=== PATIENT | female | born 1945 | race Caucasian/White ===

== ENCOUNTER 2021-05-16 06:31 | Day surgery (SDC) | payer BC, MEDICARE ==
[2021-05-16] MEDS ORDERED: KEFZOL 1 GM** 3 G in Sodium Chloride 0.9% 50 ML 50 ML IV SCH (06:45)
[2021-05-16] MEDS ORDERED: Lactated Ringers 1,000 ML IV SCH (07:00)
[2021-05-16 07:15] LABS: Absolute Neutrophil Ct (ANC) 3.23 (1.4-6.9); Basophil (Absolute #) 0.01 (0-0.4); Eosinophil % 2.6 % (0.00-5.0); Eosinophil (Absolute #) 0.17 (0-0.5); Hematocrit 41.4 % (35-47); Hemoglobin 13.4 gm/dl (12.0-16.0); Lymphocyte (Absolute #) 2.37 (1.0-4.6); Lymphocytes % 36.9 % (24.0-44.0); Mean Cell Volume 90.4 fl (78-100); Mean Corpuscular Hemoglobin 29.3 pg (26-32); Mean Corpuscular Hgb Concent. 32.4 g/dl (32-36); Mean Platelet Volume 12.8 fl (7.5-11.0); Monocyte (Absolute #) 0.65 (0.0-1.3); Monocytes % 10.1 % (0.0-12.0); Neutrophil % 50.2 % (36.0-66.0); Platelet Count 185 K/mm3 (150-450); Red Blood Count 4.58 M/mm3 (4.1-5.4); Red Cell Distribution Width 14.9 % (11.5-14.0); White Blood Count 6.4 K/mm3 (4.0-10.5)
[2021-05-16 07:43] LABS: ALBUMIN 3.7 g/dL (3.5-5.0); ALKALINE PHOSPHATASE 81 U/L (38-126); BLOOD UREA NITROGEN 11 mg/dL (7-17); CHLORIDE 107 mmol/L (98-107); Calcium 8.6 mg/dL (8.4-10.2); Carbon Dioxide 29 mmol/L (22-30); Creatinine 1 0.61 mg/dL (0.52-1.04); EST GLOMERULAR FILTRATION RATE > 60.0 ML/MIN; Glucose 106 mg/dL (74-106); Potassium 4.3 mmol/L (3.5-5.1); SGOT/AST 33 U/L (14-36); SGPT/ALT 28 U/L (0-35); SODIUM 140 mmol/L (137-145); Total Protein 6.7 g/dL (6.3-8.2)
[2021-05-16 08:15] VITALS: BP 150/70; PULSE 47; O2SAT 98
== END 2021-05-16 08:00 | disposition home or self-care (01) ==
LOC: SDC 06:31
PROVIDERS: ATTEND Obstetrics & Gynecology
DX: Z53.8 Procedure and treatment not carried out for other reasons (principal); R93.89 Abnormal findings on diagnostic imaging of other specified body structures; N89.8 Other specified noninflammatory disorders of vagina
CPT/HCPCS: 36415; 80053; 85025; 93005

== ENCOUNTER 2021-06-06 06:29 | Day surgery (SDC) | payer BC, MEDICARE ==
[2021-06-06] MEDS ORDERED: Lactated Ringers 1,000 ML IV SCH (06:30)
[2021-06-06] MEDS ORDERED: KEFZOL 1 GM** 3 G in Sodium Chloride 0.9% 50 ML 50 ML IV SCH (06:30)
[2021-06-06] MEDS ORDERED: Sensorcaine 0.25% 10 ML ONE (08:03)
[2021-06-06] MEDS ORDERED: DIPRIVAN 200 MG/20 ML IV ONE (08:16)
[2021-06-06] MEDS ORDERED: Xylocaine-Mpf 2% 5 Ml Vial ONE (08:16)
[2021-06-06] MEDS ORDERED: TORAdol 30 mg Injection ONE (08:16)
[2021-06-06] MEDS ORDERED: Decadron 4 MG INJ ONE ×2 (08:16→08:36)
[2021-06-06] MEDS ORDERED: BRIDION 200MG/2ML IV ONE (08:16)
[2021-06-06] MEDS ORDERED: Quelicin Fliptop 200 MG/10 ML ONE (08:16)
[2021-06-06] MEDS ORDERED: Zofran 4 MG/2 ML VIAL ONE (08:16)
[2021-06-06] MEDS ORDERED: SUBLIMAZE 100 MCG/2 ML ONE (08:21)
[2021-06-06] MEDS ORDERED: Pre-Attached Lta Kit TP ONE (08:28)
[2021-06-06] MEDS ORDERED: ROBINUL ONE (08:45)
[2021-06-06] MEDS ORDERED: Proair Hfa MDI IH ONE (08:48)
[2021-06-06] MEDS ORDERED: ATROPINE SULFATE 1MG ONE (09:06)
[2021-06-06] MEDS ORDERED: APRESOLINE 20 MG/ML INJ ONE (09:09)
[2021-06-06 10:04] VITALS: O2SAT 93
[2021-06-06 10:18] VITALS: BP 179/94; PULSE 80
--- NOTE | 2021-06-06 15:00 | OP ---
SURGERY DATE/TIME: 06/06/2021820 PREOPERATIVE DIAGNOSIS: Postmenopausal bleeding and vaginal lesion. POSTOPERATIVE DIAGNOSIS: Postmenopausal bleeding, endometrial polyps and vaginal lesion. PROCEDURES: 1) Hysteroscopy D&C. 2) MyoSure removal of endometrial polyps. 3) Excision of vaginal lesion. SURGEON: Manfred Bond D.O. MYCOLOGY TEACHER: Johnny Roland assistant professor surgical technology. ANESTHESIA: General. ESTIMATED BLOOD LOSS: Minimal. COMPLICATIONS: None. INDICATIONS: The risks, benefits, indications and alternatives of the procedure were reviewed with the patient prior to procedure. The patient understood the risk of infection, bleeding, bowel injury, bladder injury, ureteral injury, uterine perforation, pelvic infection, thromboembolic disorder associated with this surgery and desires to have this surgery as a possible means to alleviate her current medical condition. DESCRIPTION OF PROCEDURE AND FINDINGS: At this point the patient is taken to the operating room, given general sedation, placed in dorsal lithotomy position, prepped and draped in the usual sterile fashion. From this point the patient was noted to have a vaginal lesion of the distal part of the vaginal region on the right side which was approximately 2 cm in length by 0.5 cm in dimension. 2-0 chromic suture was placed on the base of this lesion and tied down and subsequently excised without complication. Hemostasis obtained. From this point a weighted speculum is then placed in the patient's vagina and the anterior lip of the cervix is grasped with a single tooth tenaculum. Endocervical dilators were advanced through the endocervical canal as a means to dilate the cervix and at this point a 5 mm hysteroscope was then placed into the fundus of the uterus where visualization revealed her to have multiple polypoid lesion within the fundal region as well as the middle regions of the uterus. From this point, MyoSure was introduced in through the hysteroscopic channel and MyoSure was used to excise and remove the polypoid lesions within the endometrial lining and was done so without complications. Hemostasis was obtained. There were no other gross abnormalities located within the endometrial lining. From this point, the hysteroscope was removed as well as the MyoSure and curette was then placed into the fundus of the uterus and curettage performed in all quadrants of the uterus retrieving a mild to moderate amount of tissue. After curettage hemostasis was obtained and from this point all instruments were removed from the patient's vaginal region. The patient was then taken out of dorsal lithotomy position, was taken out of anesthesia and was then taken to the recovery room in stable condition. All instruments and laps were accounted for x2.
== END 2021-06-06 10:30 | disposition home or self-care (01) ==
LOC: SDC 06:29
PROVIDERS: ATTEND Obstetrics & Gynecology
DX: N95.0 Postmenopausal bleeding (principal); N89.8 Other specified noninflammatory disorders of vagina; N84.0 Polyp of corpus uteri
CPT/HCPCS: 57135; 58558; 99100; J0330; J0360; J0461; J0690; J1100; J1885; J2405; J2704; J3010; A9270-GY

== ENCOUNTER 2023-08-06 19:13 | Emergency (ER) | payer BC, MEDICARE ==
[2023-08-06 19:35] VITALS: TEMP 97.8
[2023-08-06] MEDS ORDERED: TORAdol 30 mg Injection ONE (19:35)
[2023-08-06] MEDS: TORAdol 30 mg Injection IM ONE (19:38)
[2023-08-06 20:31] VITALS: PULSE 62; RESP 20; O2SAT 94
--- NOTE | 2023-08-06 21:58 | ERPHSYRPT ---
- History of Present Illness Time Seen by Provider: 08/06/23 19:30 Source: patient Exam Limitations: no limitations Patient Subjective Stated Complaint: pt states she missed the last step and fell on her back on the sidewalk. c/o pain in back, lt buttock, and back of head Triage Nursing Assessment: pt alert and oriented, answers questions approp. pt ambulates into room with slow steady gait noted. respirations nonlabored. skin warm and dry. abrasion noted to lt elbow. tenderness noted to mid back. no bruising on back or lt hip noted at this time. Physician History: 77-year-old female descending steps missed last step fell backwards onto concrete sidewalk. Fall occurred just prior to arrival. Patient complains of pain at the back of her head lower thoracic spine and left buttock. Patient also has a bruise to her left elbow however she denies bony tenderness and states that an x-ray is not necessary. Patient's fall was mechanical and not associated with any neuro cardiovascular symptomology. No chest pain or shortness of breath. No nausea vomiting or diaphoresis. No numbness tingling or weakness. at bedside. They voiced no other complaints or concerns at this time. No neck pain. Cervical spine cleared clinically Patient had that she was ambulatory. No lower extremity pain. Patient had a [place] just prior to arrival Portions of this note were created with voice recognition technology. There may be grammatical, spelling, punctuation or sound alike errors Timing/Duration: today Severity: moderate Modifying Factors: Improves With: nothing Associated Symptoms: denies symptoms Allergies/Adverse Reactions: Sulfa (Sulfonamide Antibiotics) Allergy (Unknown, Verified 08/06/23 19:36) Tetanus Vaccines and Toxoid Adverse Reaction (Intermediate, Verified 08/06/23 19:36) Swelling meperidine [From Demerol] Adverse Reaction (Unknown, Verified 08/06/23 19:36) pt reports it makes her very loopy Home Medications: Levothyroxine Sodium [Synthroid] 150 mcg PO DAILY 05/12/21 [History] Hx Tetanus, Diphtheria Vaccination/Date Given: No Hx Influenza Vaccination/Date Given: No Hx Pneumococcal Vaccination/Date Given: No Immunizations Up to Date: No Travel Risk - International Travel Have you traveled outside of the country in past 3 weeks: No - Emerging Infectious Disease Are you exhibiting symptoms associated with any current EIDs: No - Review of Systems Constitutional: No Symptoms, No Fever, No Chills Eyes: No Symptoms Ears, Nose, & Throat: No Symptoms Respiratory: No Symptoms, No Cough, No Dyspnea Cardiac: No Symptoms, No Chest Pain, No Edema, No Syncope Abdominal/Gastrointestinal: No Symptoms, No Abdominal Pain, No Nausea, No Vomiting, No Diarrhea Genitourinary Symptoms: No Symptoms, No Dysuria Musculoskeletal: No Symptoms, No Back Pain, No Neck Pain Skin: No Symptoms, No Rash Neurological: No Symptoms, No Dizziness, No Focal Weakness, No Sensory Changes Psychological: No Symptoms Endocrine: No Symptoms Hematologic/Lymphatic: No Symptoms Immunological/Allergic: No Symptoms All Other Systems: Reviewed and Negative - Past Medical History Neurological History: No Pertinent History ENT History: No Pertinent History Cardiac History: Other Respiratory History: No Pertinent History Endocrine Medical History: Hypothyroidism Musculoskeletal History: Osteoarthritis GI Medical History: No Pertinent History History: No Pertinent History Psycho-Social History: No Pertinent History Female Reproductive Disorders: No Pertinent History Other Medical History: LOW HEART RATE. bilat TKA. 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 - Past Surgical History Past Surgical History: Yes Neuro Surgical History: No Pertinent History Cardiac: No Pertinent History Respiratory: No Pertinent History Gastrointestinal: Appendectomy, Cholecystectomy, Colon Resection Genitourinary: No Pertinent History Musculoskeletal: Joint Replacement, Orthopedic Surgery Female Surgical History: Tubal Ligation Other Surgical History: bilat knees - Social History Smoking Status: Former smoker Exposure to second hand smoke: No Drug Use: none - Nursing Vital Signs Nursing Vital Signs: Initial Vital Signs Temperature 97.8 F 08/06/23 19:20 Pulse Rate 70 08/06/23 19:20 Respiratory Rate 18 08/06/23 19:20 Blood Pressure 166/90 08/06/23 19:20 O2 Sat by Pulse Oximetry 96 08/06/23 19:20 Pain Scale Pain Intensity 9 - Physical Exam General Appearance: no apparent distress, alert Eye Exam: PERRL/EOMI, eyes nml inspection, other (Some tenderness to palpation to the occipital region of her head.) Ears, Nose, Throat Exam: normal ENT inspection, TMs normal, pharynx normal, moist mucous membranes Neck Exam: normal inspection, non-tender, supple, full range of motion Respiratory Exam: normal breath sounds, lungs clear, No respiratory distress Cardiovascular Exam: regular rate/rhythm, normal heart sounds, normal peripheral pulses Gastrointestinal/Abdomen Exam: soft, normal bowel sounds, No tenderness, No mass Pelvic Exam: other (Tenderness to palpation left buttock area.) Back Exam: normal inspection, normal range of motion, other (Tenderness to palpation along lower thoracic spine.), No CVA tenderness, No vertebral tenderness Extremity Exam: normal inspection, normal range of motion, pelvis stable, other (Small abrasion to left elbow.) Neurologic Exam: alert, oriented x 3, cooperative, normal mood/affect, nml cerebellar function, nml station & gait, sensation nml, No motor deficits Skin Exam: normal color, warm, dry, No rash Lymphatic Exam: No adenopathy SpO2 Interpretation: normal SpO2: 94 O2 Delivery: Room Air - Course Nursing assessment & vital signs reviewed: Yes - CT Exams Thoracic Spine CT Interpretation: Tele-radiologist Report (No comps. Osteopenia. Diffuse idiopathic skeletal hyperostosis also known as DISH, mild dextroscoliosis nothing acute) Head CT Interpretation: Tele-radiologist Report (No comps normal head) Pelvis CT Interpretation: Tele-radiologist Report (No comps. Osteopenia, bilateral hip DJD and sigmoid diverticulosis nothing acute) Ordered Tests: Active Orders 24 hr Category Date Time Status HEAD WITHOUT CONTRAST [CT] Stat Exams 08/06/23 19:33 Taken PELVIS WITHOUT CONTRAST [CT] Stat Exams 08/06/23 19:48 Taken THORACIC SPINE W/O CONTRAST [CT] Stat Exams 08/06/23 19:27 Taken Medication Summary Discontinued Medications Generic Name Dose Route Start Last Admin Trade Name Freq PRN Reason Stop Dose Admin Ketorolac Tromethamine 30 mg 08/06/23 19:27 08/06/23 19:38 Ketorolac Tromethamine 30 Mg/Ml Inj IM 08/06/23 19:28 30 mg STAT ONE Administration Ketorolac Tromethamine Confirm 08/06/23 19:35 Ketorolac Tromethamine 30 Mg/Ml Inj Administered 08/06/23 19:36 Dose 30 mg .ROUTE .STK-MED ONE - Progress Progress: improved Progress Note: 77-year-old female presents to our ED for evaluation status post fall while descending steps. Physical exam reveals some tenderness to the back of her head lower thoracic spine and pelvic region. CT scan negative for acute pathology. No indication for further workup. Patient reassessed pain improved. Patient agrees to follow-up with her primary care doctor within 48 hours for reevaluation. Complexity problem addressed is moderate acute complicated. No critical care time. Complexity data reviewed and analyzed is moderate. Test ordered test reviewed results analyzed and correlated clinically with history and physical exam. Risk of complication and or risk of morbidity/mortality patient management is moderate. A prescription for Toradol forwarded to patient's pharmacy. Vital stable. Time spent to discharge patient approximately 15 minutes. Plan of care established for shared decision making. No social determinants of health present impede follow-up. Portions of this note were created with voice recognition technology. There may be grammatical, spelling, punctuation or sound alike errors 08/06/23 22:03 Counseled pt/family regarding: diagnosis, need for follow-up, rad results - Departure Departure Disposition: Home Clinical Impression: Fall, DISH (diffuse idiopathic skeletal hyperostosis), Strain of thoracic region, Osteopenia, Degenerative joint disease of both hips, Sigmoid diverticulosis Condition: Stable Critical Care Time: No Referrals: HOWARD BURGOS MD [Primary Care Provider] - Follow up/PCP as directed Additional Instructions: Discharge/Care Plan BERNICE BLANCO was seen on 08/06/23 in the Emergency Room. The patient was counseled regarding Diagnosis,Lab results, Imaging studies, need for follow up and when to return to the Emergency Room. Prescriptions given: Discharge Note I have spoken with the patient and/or caregivers. I have explained the patient's condition, diagnosis and treatment plan based on the information available to me at this time. I have answered the patient's and/or caregiver's questions and addressed any concerns. The patient and/or caregivers have as good understanding of the patient's diagnosis, condition and treatment plan as can be expected at this point. The vital signs have been stable. The patient's condition is stable and appropriate for discharge from the emergency department. The patient will pursue further outpatient evaluation with the primary care physician or other designated or consulting physician as outlined in the discharge instructions. The patient and/or caregivers are agreeable to this plan of care and follow-up instructions have been explained in detail. The patient and/or caregivers have received these instruction. The patient/and or caregivers are aware that any significant change in condition or worsening of symptoms should prompt an immediate return to this or the closest emergency department or call 911. Prescriptions: Ketorolac Trometh 10 mg Tab [TORAdol 10 MG TABLET] 10 mg PO TID 5 Days #15 tablet
[2023-08-06 22:16] VITALS: BP 132/60
--- NOTE | 2023-08-07 08:41 | XRAY ---
Indication: Pain following fall. Multiple contiguous axial images obtained through the head without contrast. Comparison: None Normal appearing brain parenchyma, ventricles, and bony calvarium for patient's age. Visualized paranasal sinuses and mastoid air cells are clear. Impression: Normal CT head without contrast exam.
--- NOTE | 2023-08-07 08:44 | XRAY ---
Dictation: Pain following fall. Multiple contiguous axial images obtained through the thoracic spine. Sagittal and coronal reformatted images obtained. Comparison: None Osseous structures demineralized consistent with patient's age. Flowing osteophytes throughout the spine favoring diffuse idiopathic skeletal hyperostosis. No acute fracture, suspicious bony lesions, or spinal canal stenosis. Sagittal and coronal reformatted images demonstrates normal thoracic kyphosis and mild dextroscoliosis centered at T6. Mild multilevel degenerative disc space narrowing. No acute compression fracture or subluxation. Visualized noncontrasted soft tissues demonstrates minimal scattered aortic calcifications. Impression: 1. Negative for acute fracture/subluxation. 2. Chronic findings including osteopenia, DISH, scoliosis, and arteriosclerotic disease.
--- NOTE | 2023-08-07 08:46 | XRAY ---
Indication: Left hip pain following fall. Multiple contiguous axial images obtained through the pelvis with special attention to the osseous structures. Sagittal and coronal reformatted images obtained. Comparison: None Osseous structures demineralized consistent with patient's age. Degenerative changes visualized lumbar spine, both SI joints, and both hips. No acute fracture, dislocation, or suspicious bony lesions. Multiple bilateral inguinal surgical clips and incompletely visualized midline ventral hernia mesh graft. No suspicious solid/cystic soft tissue mass or abnormal fluid collection. Incidental sigmoid diverticulosis and a few small right pelvic calcified nodes. No pathologic lymphadenopathy. Impression: 1. Negative acute fracture/dislocation. 2. Chronic findings including osteopenia, degenerative changes, sigmoid diverticulosis, and old granulomatous disease.
== END 2023-08-06 22:18 | disposition home or self-care (01) ==
LOC: ED 19:13
DX: S29.012A Strain of muscle and tendon of back wall of thorax, initial encounter (principal); W10.9XXA Fall (on) (from) unspecified stairs and steps, initial encounter; M48.14 Ankylosing hyperostosis [Forestier], thoracic region; M85.88 Other specified disorders of bone density and structure, other site; M16.0 Bilateral primary osteoarthritis of hip; K57.30 Diverticulosis of large intestine without perforation or abscess without bleeding; R51.9 Headache, unspecified; Z79.899 Other long term (current) drug therapy
CPT/HCPCS: 70450; 72128; 72192; 96372; 99283; J1885